=== PATIENT | female | born 1975 | race Caucasian/White ===

== ENCOUNTER 2018-04-27 13:15 | Emergency (ER) | payer BC, OTHER ==
[2018-04-27 15:13] LABS: ADD MAN DIFF? NO
[2018-04-27 15:25] LABS: WHITE BLOOD COUNT 6.4 10^3/ul (4.8-10.8)
[2018-04-27 15:25] LABS: BASOPHILS % 0.6 % (0.0-2.0); EOSINOPHILS % 0.6 % (0.0-7.0); HEMATOCRIT 42.1 % (37.0-47.0); HEMOGLOBIN 14.3 g/dl (12.0-16.0); LYMPHOCYTES # 1.4 10^3/ul (0.8-2.9); LYMPHOCYTES % 22.4 % (15.0-51.0); MEAN CORPUSCULAR HEMOGLOBIN 31.4 pg (29.0-33.0); MEAN CORPUSCULAR VOLUME 92.3 fl (82.0-101.0); MONOCYTE # 0.6 10^3/ul (0.3-0.9); MONOCYTES % 8.8 % (0.0-11.0); NEUTROPHIL # 4.3 10^3/ul (1.6-7.5); NEUTROPHILS % 67.3 % (39.0-77.0); PLATELET COUNT 336 10^3/UL (140-415); RED BLOOD COUNT 4.56 10^6/ul (4.20-5.40); RED CELL DISTRIBUTION WIDTH 11.9 % (11.5-14.5)
[2018-04-27 15:36] LABS: D-DIMER 320.52 ng/ml (<460)
[2018-04-27 15:39] LABS: ANION GAP 10 (8-16); BLOOD UREA NITROGEN 14 mg/dl (7-20); CARBON DIOXIDE 30 mmol/L (21-31); CHLORIDE 106 mmol/L (97-110); GLUCOSE 92 mg/dl (70-220); POTASSIUM 3.8 mmol/L (3.5-5.1); SODIUM 142 mmol/L (135-144)
[2018-04-27 15:54] LABS: TROPONIN-I < 0.012 ng/ml (0.000-0.120)
== END 2018-04-27 17:18 | disposition home or self-care (01) ==
LOC: E/R 13:15
DX: R07.9 Chest pain, unspecified (principal); F41.9 Anxiety disorder, unspecified; R00.2 Palpitations; R06.02 Shortness of breath; R40.2142 Coma scale, eyes open, spontaneous, at arrival to emergency department; R40.2252 Coma scale, best verbal response, oriented, at arrival to emergency department; R40.2362 Coma scale, best motor response, obeys commands, at arrival to emergency department
CPT/HCPCS: 36415; 71045; 80048; 84484; 85025; 85378; 93005; 99285-25

== ENCOUNTER 2019-03-28 21:12 | Emergency (ER) | payer BC ==
[2019-03-28] MEDS: DEXAMETHASONE 10 MG/ML 1 ML INJ IM (22:55)
[2019-03-28] MEDS: METHOCARBAMOL 750 MG TAB PO (22:55)
[2019-03-28] MEDS: KETOROLAC 30 MG INJ IM (23:03)
== END 2019-03-29 01:58 | disposition home or self-care (01) ==
LOC: FTE 21:12
DX: M54.42 Lumbago with sciatica, left side (principal)
CPT/HCPCS: 72100; 81025; 96372; 99284-25

== ENCOUNTER 2019-04-04 22:31 | Emergency (ER) | payer BC ==
[2019-04-04] MEDS: KETOROLAC 15 MG INJ IM (23:51)
[2019-04-04] MEDS: morphine 4 MG/ML VIAL IM (23:51)
== END 2019-04-05 00:33 | disposition home or self-care (01) ==
LOC: E/R 04-05 00:33
DX: M54.42 Lumbago with sciatica, left side (principal); R40.2142 Coma scale, eyes open, spontaneous, at arrival to emergency department; R40.2252 Coma scale, best verbal response, oriented, at arrival to emergency department; R40.2362 Coma scale, best motor response, obeys commands, at arrival to emergency department
CPT/HCPCS: 96372; 99284-25